=== PATIENT | male | born 1945 | race Caucasian/White ===

== ENCOUNTER → 2020-03-25 | Day surgery (SDC) | payer MEDICARE, OTHER ==
[2020-03-21 14:25] LABS: BASOPHILS # (AUTO) 0.1 (0.0-0.1); EOSINOPHILS # (AUTO) 0.4 (0.0-0.4); EOSINOPHILS % 3.9 % (0.0-6.0); HEMATOCRIT 50.9 % (38.2-49.6); HEMOGLOBIN 16.5 g/dL (14.0-18.0); LYMPHOCYTES # (AUTO) 2.1 (1.0-3.2); LYMPHOCYTES % 21.5 % (18.0-39.1); MEAN CORPUSCULAR HEMOGLOBIN 28.6 pg (28-32); MEAN CORPUSCULAR HGB CONC 32.4 g/dL (31-35); MEAN CORPUSCULAR VOLUME 88.4 fL (81-99); MONOCYTES # (AUTO) 0.7 (0.2-0.8); MONOCYTES % 6.7 % (4.4-11.3); NEUTROPHILS # (AUTO) 6.5 (2.1-6.9); NEUTROPHILS % 66.6 % (38.7-80.0); PLATELET COUNT 191 x10e3/uL (140-360); RED BLOOD COUNT 5.76 x10e6/uL (4.3-5.7); RED CELL DISTRIBUTION WIDTH 14.5 % (11.7-14.4)
[2020-03-21 14:47] LABS: ALANINE AMINOTRANSFERASE 31 IU/L (0-55); ALBUMIN 3.6 g/dL (3.5-5.0); ALBUMIN/GLOBULIN RATIO 1.2 (0.8-2.0); ALKALINE PHOSPHATASE 56 IU/L (40-150); ANION GAP 10.4 mmol/L (8-16); BLOOD UREA NITROGEN 13 mg/dL (7-26); BUN/CREATININE RATIO 12 (6-25); CALCIUM 9.5 mg/dL (8.4-10.2); CARBON DIOXIDE 31 mmol/L (22-29); CHLORIDE 105 mmol/L (98-107); EST GLOMERULAR FILTRATION RATE > 60 ML/MIN (60-); GLUCOSE 156 mg/dL (74-118); POTASSIUM 4.4 mmol/L (3.5-5.1); SODIUM 142 mmol/L (136-145)
[~2020-03-25] VITALS: Ht 181.6 cm; Wt 93.0 kg
[2020-03-25] VITALS (10 sets, daily range): BP systolic 124–183; BP diastolic 70–87
[~2020-03-25] MED LIST: ALPRAZOLAM 0.5 MG TAB ONE; ASPIR 8181 MG PO; ASPIRIN 325 MG TAB ONE; ATORVASTATIN CA20 MG PO; CHROMIUM PICO200 MC1 PO; DIPHENHYDRAMINE HCL 25 MG CAP ONE; FENTANYL CITRATE/PF 100MCG/2 ML INJ ONE; HEPARIN SOD (PORCINE) 1000 UNIT/ML 30ML ONE; HEPARIN SOD/SOD CHLORIDE 2,000 ML ONE; IOPAMIDOL 300MG/ML 100 ML INFUS..BTL IV ONE; LIDOCAINE HCL 2% LOCAL 20 ML VIAL ONE; MIDAZOLAM HCL 2 MG/2 ML VIAL ONE; MULTI-VITAMIN1 EACH PO; PRASUGREL 10 MG TAB ONE; SODIUM CHLORIDE 0.9% 1000ML 1,000 ML ONE; SODIUM CHLORIDE 0.9% 50ML 50 ML ONE; VITAMIN D325 MCG PO
--- OUTSIDE RECORDS SUMMARY | 2020-03-25 11:26 | XMS REPORT | Continuity of Care Document ---
Author Author J[employer] [place] [employer] Organization [employer] Address Unknown Phone Unavailable Care Team Providers Care Restaurant Crew Name Role Phone [employer] Information [employer] Unavailable Un available Problems Problem Status Onset Date Classification Date Reported Comments Source PREOP DBS SURGERY Active 04/14/2017 [facility] ESSENTIAL TREMORS Active 04/06/2017 [facility] TREMOR Active 03/18/2017 [facility] Essential tremor (disorder) Ac tive Problem [facility] Hyperlipidemia (disorder) Acti ve Problem [facility]ly [facility] Obstructive sleep apnea syndrome (disorder) Active Problem 05/13/2018 [facility] ESSENTIAL TREMOR Active [facility] Medications Medication Details Route Status Patient Instructions Ordering Provider Order Date Source olopatadine BOTH EYES, 0 Refil l(s) Active 05/10/2018 [facility] montelukast 10 mg oral tablet 10 mg = 1 tab, PO, Bedtime, # 30 tab, 0 Refill(s) Active 05/10/2018 [facility] clindamycin 300 mg oral capsule 300 mg = 1 cap, PO, Q6H, X 10 day, # 40 cap, 0 Refill(s) Active 05/03/2017 [facility] Docusate Sodium 100 MG Oral Capsule 100 mg = 1 cap, PO, BID, # 60 cap, 0 Refill(s) Active 05/03/2017 [facility] Acetaminophen 300 MG / Codeine Phosphate 30 MG Oral Tablet [Tylenol with Codeine #3] 1 - 2 tab, PO, Q6H, PRN Pain, X 4 day, # 32 tab, 0 Refill(s) Active 05/03/2017 [facility] Cephalexin 500 MG Oral Capsule [Keflex] 500 mg = 1 cap, PO, TID, X 10 day, # 30 cap, 0 Refill(s) Inactive 05/03/2017 [facility] niCARdipine (ANES) Route: IV, Drug form: INJ, ONCE, Stop date: 05/03/17 15:07:00 CDT Inactive 05/03/2017 [facility] esmolol (ANES) Route: IV, Drug form: INJ, ONCE, Stop date: 05/03/17 15:07:00 CDT Inactive 05/03/2017 [facility] ondansetron (ANES) Route: IV, Drug form: INJ, ONCE, Stop date: 05/03/17 15:07:00 CDT Inactive 05/03/2017 [facility] glycopyrrolate (ANES) Route: I V, Drug form: INJ, ONCE, Stop date: 05/03/17 14:52:00 CDT Inactive 05/03/2017 [facility] fentaNYL (ANES) Route: IV, Brayan g form: INJ, ONCE, Stop date: 05/03/17 14:17:00 CDT Inactive 05/03/2017 [facility] lidocaine (ANES) Route: IV, Dr ug form: INJ, ONCE, Stop date: 05/03/17 14:17:00 CDT Inactive 05/03/2017 [facility] propofol (ANES) Route: IV, Brayan g form: INJ, ONCE, Stop date: 05/03/17 14:17:00 CDT Inactive 05/03/2017 [facility] Ondansetron Notes: (Same as: Herbert he) MEDICATION WASTE Product Size: 4 mg Product Wasted: ___ mg No Longer Active 05/03/2017 [facility] Oxycodone Notes: (Same as: Joy icodone) No Longer Active 05/03/2017 [facility] Naloxone Notes: Same as Narcan No Longer Active 05/03/2017 [facility] Flumazenil Notes: (Same as: Ro mazicon) No Longer Active 05/03/2017 [facility] Labetalol 10 mg, 2 mL, Route: IVP, Drug form: INJ, Q5Min, Dosing Weight 88.636, kg, PRN Elevated BP, Start date: 05/03/17 14:02:00 CDT, Duration: 5 doses or times, Stop date: Limited # of times No Longer Active 05/03/2017 [facility] vancomycin (ANES) (ANES) Route : IV, Drug form: INJ, Start date: 05/03/17 13:50:00 CDT, Stop date: 05/03/17 14:50:00 CDT Inactive 05/03/2017 [facility] LR 1000 mL INJ (ANES) Route: I V, Total Volume: 1,000, Start date: 05/03/17 13:39:00 CDT, Stop date: 05/03/17 14:39:00 CDT Inactive 05/03/2017 [facility] Primidone PO, TID, 0 Refill(s) Active 05/03/2017 [facility] Aspirin 0 Refill(s) Inactive 05/03/2017 [facility] Testosterone 0 Refill(s) Active 05/03/2017 [facility] vancomycin + sodium chloride 0.9% 250 mL INJ (for IV set) 250 mL 2001 mg: infuse over 2.5 hours ME DICATION WASTE Product Size: 1000 mg Product Wasted: ___ mg No Longer Active 05/03/2017 [facility] Saline Flush 0.9% Notes: Same as: BD Posiflush Sterile No Longer Active 04/23/2017 [facility] Vancomycin 2001 mg: infuse ov er 2.5 hours MEDICATION WASTE Product Size: 1000 mg Product Wasted: ___ mg No Longer Active 04/23/2017 [facility] Docusate Notes: (Same as: Cola ce) (Do Not Crush) No Longer Active 04/23/2017 [facility] sennosides, SNF Notes: (Same a s: Senokot) No Longer Active 04/23/2017 [facility] atorvastatin Notes: (Same As: Lipitor) No Longer Active 04/23/2017 [facility] Docusate Sodium 100 MG Oral Capsule 100 mg = 1 cap, PO, BID, # 60 cap, 0 Refill(s) Active 04/22/2017 [facility] Ciprofloxacin 500 MG Oral Tablet [Cipro] 500 mg = 1 tab, PO, Q12H, X 10 day, # 20 tab, 0 Refill(s) Active 04/22/2017 [facility] tramadol hydrochloride 50 MG Oral Tablet 50 mg = 1 tab, PO, Q4H, PRN Pain, X 10 day, # 60 tab, 0 Refill(s) Active 04/22/2017 [facility] Labetalol 10 mg, 2 mL, Route: IVP, Drug form: INJ, Q15Min, Dosing Weight 88.636, kg, PRN Hypertension, Start date: 04/22/17 17:31:00 CDT, Duration: 3 doses or times, Stop date: 04/23/17 18:00:00 CDT No Longer Active 04/22/2017 [facility] Hydralazine Notes: (Same as: A presoline) Push over 5 minutes No Longer Active 04/22/2017 [facility] Labetalol 10 mg, 2 mL, Route: IVP, Drug form: INJ, ONCE, Dosing Weight 88.636, kg, Start date: 04/22/17 15:23:00 CDT, Stop date: 04/22/17 15:23:00 CDT Inactive 04/22/2017 [facility] Hydromorphone 0.5 mg, Route: 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, Q5Min, Dosing Weight 88.636, kg, PRN Pain Score 7-10, Start date: 04/22/17 12:15:00 CDT, Duration: 4 doses or times, Stop date: Limited # of times Inactive 04/22/2017 [facility] Flumazenil 0.2 mg, Route: IVP, PRN, Dosing Weight 88.636, kg, PRN Benzodiazepine Reversal, Initial dose, Start date: 04/22/17 12:15:00 CDT, Duration: 30 day, Stop date: 05/22/17 12:14:00 CDT Inactive 04/22/2017 [facility] Labetalol 10 mg, Route: IVP, Q 5Min, Dosing Weight 88.636, kg, PRN Elevated BP, Start date: 04/22/17 12:15:00 CDT, Duration: 5 doses or times, Stop date: Limited # of times Inactive 04/22/2017 [facility] Oxycodone 5 mg, Route: PO, Brayan g form: TAB, Q4H, Dosing Weight 88.636, kg, PRN Pain Score 4-6, Start date: 04/22/17 12:15:00 CDT, Duration: 30 day, Stop date: 05/22/17 12:14:00 CDT Inactive 04/22/2017 [facility] Hydralazine 10 mg, Route: IVP, Q20Min, Dosing Weight 88.636, kg, PRN Elevated BP, Start date: 04/22/17 12:15:00 CDT, Duration: 2 doses or times, Stop date: Limited # of times Inactive 04/22/2017 [facility] Ondansetron 4 mg, Route: IVP, ONCE, Dosing Weight 88.636, kg, PRN Nausea & Vomiting, Start date: 04/22/17 12:15:00 CDT Inactive 04/22/2017 [facility] Naloxone 0.4 mg, Route: IVP, Q 2MIN, Dosing Weight 88.636, kg, PRN Narcotic Reversal, Start date: 04/22/17 12:15:00 CDT, Duration: 8 doses or times, Stop date: Limited # of times Inactive 04/22/2017 [facility] Saline Flush 0.9% Notes: Same as: BD Posiflush Sterile No Longer Active 04/22/2017 [facility] Acetaminophen 325 MG / Hydrocodone Priti trate 5 MG Oral Tablet Notes: (Same as: [place] 325/5) Do not ex ceed 4gm/day of acetaminophen. No Longer Active 04/22/2017 [facility] Morphine Notes: (Same as:MORPh ine Sulfate) No Longer Active 04/22/2017 [facility] Sodium Chloride 0.154 MEQ/ML Injectable Solution 1,000 mL, Rate: 50 ml/hr, Infuse over: 20 hr, Route: IV, Dosing Weight 88.636 kg, Total Volume: 1,000, Start date: 04/22/17 11:58:00 CDT, Duration: 30 day, Stop date: 05/22/17 11:57:00 CDT No Longer Active 04/22/2017 [facility] Ondansetron Notes: (Same as: Herbert he) MEDICATION WASTE Product Size: 4 mg Product Wasted: ___ mg No Longer Active 04/22/2017 [facility] ondansetron (ANES) Route: IV, Drug form: INJ, ONCE, Stop date: 04/22/17 11:55:00 CDT Inactive 04/22/2017 [facility] levETIRAcetam (ANES) (ANES) Ro port gamble: IV, Drug form: INJ, Start date: 04/22/17 11:18:00 CDT, Stop date: 04/22/17 12:18:00 CDT Inactive 04/22/2017 [facility] remifentanil (ANES) Route: IV, Drug form: INJ, ONCE, Stop date: 04/22/17 9:50:00 CDT Inactive 04/22/2017 [facility] propofol (ANES) (ANES) Route: IV, Drug form: INJ, Start date: 04/22/17 9:43:00 CDT, Stop date: 04/22/17 10:43:00 CDT Inactive 04/22/2017 [facility] propofol (ANES) Route: IV, Brayan g form: INJ, ONCE, Stop date: 04/22/17 9:16:00 CDT Inactive 04/22/2017 [facility] remifentanil (ANES) (ANES) Rou te: IV, Drug form: INJ, Start date: 04/22/17 9:14:00 CDT, Stop date: 04/22/17 10:14:00 CDT Inactive 04/22/2017 [facility] propofol (ANES) Route: IV, Brayan g form: INJ, ONCE, Stop date: 04/22/17 8:29:00 CDT Inactive 04/22/2017 [facility] alfentanil (ANES) Route: IV, D rug form: INJ, ONCE, Stop date: 04/22/17 8:29:00 CDT Inactive 04/22/2017 [facility] vancomycin (ANES) (ANES) Route : IV, Drug form: INJ, Start date: 04/22/17 7:51:00 CDT, Stop date: 04/22/17 8:51:00 CDT Inactive 04/22/2017 [facility] acetaminophen (ANES) (ANES) Ro port gamble: IV, Drug form: INJ, Start date: 04/22/17 7:43:00 CDT, Stop date: 04/22/17 8:43:00 CDT Inactive 04/22/2017 [facility] LR 1000 mL INJ (ANES) Route: I V, Total Volume: 1,000, Start date: 04/22/17 7:35:00 CDT, Stop date: 04/22/17 8:35:00 CDT Inactive 04/22/2017 [facility] vancomycin + sodium chloride 0.9% INJ 250 mL 2001 mg: infuse over 2.5 hours MEDICATION WASTE Product Size: 1000 mg Product Wasted: ___ mg Inactive 04/22/2017 [facility] Allergies, Adverse Reactions, Alerts Substance Category Reaction Severity Reaction type Status Date Reported Comments Source penicillins Assertion Drug allergy Active [facility] Immunizations No Data Provided for This Section Results Order Name Results Value Reference Range Date Interpretation Comments Source BLOOD BANK RESULTS ABO/Rh A POS 04/22/2017 [facility] BLOOD BANK RESULTS Antibody Scrn Negative (04/22/17 6:08 AM) 04/22/2017 [facility] CHEM PANEL eGFR 89 04/14/2017 Result Comment: The eGFR is calculated using the CKD-EPI formula. In most young, healthy individuals the eGFR will be >90 mL/min/1.73m2. The eGFR declines with age. An eGFR of 60-89 may be normal in some populations, particularly the elderly, for whom the CKD-EPI formula has not been extensively validated. Use of the eGFR is not recommended in the following populations:

Individuals with unstable creatinine concentrations, including patients and those with serious co-morbid conditions.

Patients with extremes in muscle mass or diet.

The data above are obtained from the National Kidney Disease Education Program (NKDEP) which additionally recommends that when the eGFR is used in patients with extremes of body mass index for purposes of drug dosing, the eGFR should be multiplied by the estimated BMI. [facility] CHEM PANEL POC Creatinine 0.8 0.5 - 1.4 04/14/2017 [facility] ELECTROLYTES AGAP 9.7 10.0 - 20.0 04/07/2017 [facility] ELECTROLYTES eGFR 71 04/07/2017 Result Comment: The eGFR is calculated using the CKD-EPI formula. In most young, healthy individuals the eGFR will be >90 mL/min/1.73m2. The eGFR declines with age. An eGFR of 60-89 may be normal in some populations, particularly the elderly, for whom the CKD-EPI formula has not been extensively validated. Use of the eGFR is not recommended in the following populations:

Individuals with unstable creatinine concentrations, including patients and those with serious co-morbid conditions.

Patients with extremes in muscle mass or diet.

The data above are obtained from the National Kidney Disease Education Program (NKDEP) which additionally recommends that when the eGFR is used in patients with extremes of body mass index for purposes of drug dosing, the eGFR should be multiplied by the estimated BMI. [facility] ELECTROLYTES CO2 36 24 - 32 04/07/2017 [facility] ELECTROLYTES Calcium Lvl 9.7 8.5 - 10.5 04/07/2017 [facility] ELECTROLYTES Potassium Lvl 4.7 3.5 - 5.1 04/07/2017 [facility] ELECTROLYTES Glucose Lvl 70 70 - 99 04/07/2017 [facility] ELECTROLYTES Chloride Lvl 104 95 - 109 04/07/2017 [facility] ELECTROLYTES BUN 17 7 - 22 04/07/2017 [facility] ELECTROLYTES Creatinine Lvl 1.0 4 0.50 - 1.40 04/07/2017 [facility] ELECTROLYTES Sodium Lvl 145 135 - 145 04/07/2017 [facility] HEMATOLOGY Basophils # 0.1 0.0 - 0.2 04/07/2017 [facility] HEMATOLOGY Monocytes # 0.7 0.0 - 0.8 04/07/2017 [facility] HEMATOLOGY Eosinophils # 0.3 0.0 - 0.5 04/07/2017 [facility] HEMATOLOGY Lymphocytes # 2.2 1.0 - 5.5 04/07/2017 [facility] HEMATOLOGY Lymphocytes 19.8 20.0 - 40.0 04/07/2017 [facility] HEMATOLOGY Segs 70.5 45.0 - 75.0 04/07/2017 [facility] HEMATOLOGY Basophils 0.9 0.0 - 1.0 04/07/2017 [facility] HEMATOLOGY Segs-Bands # 7.7 1.5 - 8.1 04/07/2017 [facility] HEMATOLOGY Eosinophils 2.4 0.0 - 4.0 04/07/2017 [facility] HEMATOLOGY Monocytes 6.4 2.0 - 12.0 04/07/2017 [facility] HEMATOLOGY RDW 14.5 11.5 - 14.5 04/07/2017 [facility] HEMATOLOGY MCHC 32.8 32.0 - 36.0 04/07/2017 [facility] HEMATOLOGY Platelet 176 133 - 450 04/07/2017 [facility] HEMATOLOGY MPV 8.8 7.4 - 10.4 04/07/2017 [facility] HEMATOLOGY RBC 5.84 4.70 - 6.10 04/07/2017 [facility] HEMATOLOGY MCH 29.4 27.0 - 31.0 04/07/2017 [facility] HEMATOLOGY MCV 89.9 80.0 - 94.0 04/07/2017 [facility] HEMATOLOGY WBC 11.0 3.7 - 10.4 04/07/2017 [facility] HEMATOLOGY Hct 52.5 42.0 - 54.0 04/07/2017 [facility] HEMATOLOGY Hgb 17.2 14.0 - 18.0 04/07/2017 [facility] HEMATOLOGY INR 1.08 0.85 - 1.17 04/07/2017 [facility] HEMATOLOGY PT 14.2 12.0 - 14.7 04/07/2017 [facility] HEMATOLOGY PTT 43.5 22.9 - 35.8 04/07/2017 [facility] URINE AND STOOL Micro? Not Indicated *NA* (04/07/17 2:00 PM) 04/07/2017 [facility] URINE AND STOOL UA Urobilinogen <=1.0 mg/dL 0.1 - 1.0 04/07/2017 [facility] URINE AND STOOL UA Bili Negative *NA* (04/07/17 2:00 PM) Negative 04/07/2017 [facility] URINE AND STOOL UA Protein Negative mg/dL Negative mg/dL 04/07/2017 [facility] URINE AND STOOL UA pH 5.0 5.0 - 8.0 04/07/2017 [facility] URINE AND STOOL UA Ketones Negative mg/dL Negative mg/dL 04/07/2017 [facility] URINE AND STOOL UA Glucose Negative mg/dL Negative mg/dL 04/07/2017 [facility] URINE AND STOOL UA Spec Grav 1.008 <=1.030 04/07/2017 [facility] URINE AND STOOL UA Color Yellow *NA* (04/07/17 2:00 PM) Yellow 04/07/2017 [facility] URINE AND STOOL UA Turbidity Clear (04/07/17 2:00 PM) Clear 04/07/2017 [facility] URINE AND STOOL UA Blood Negative (04/07/17 2:00 PM) Negative 04/07/2017 [facility] URINE AND STOOL UA Nitrite Negative (04/07/17 2:00 PM) Negative 04/07/2017 [facility] URINE AND STOOL UA RBC <1 0 - 2 04/07/2017 [facility] URINE AND STOOL UA Leuk Est Negative (04/07/17 2:00 PM) Negative 04/07/2017 [facility] URINE AND STOOL UA WBC 1 0 - 5 04/07/2017 [facility] Pathology Reports No Data Provided for This Section Diagnostic Reports Report Value Date Source Brain wo contrast CT EXAM: CT BRAIN WITHOUT CONTRAST FOR TREATMENT PLANNING DATE: 04/22/2017 8:00 AM CDT INDICATION: - TREMOR COMPARISON: MRI of the brain from April 14, 2017 TECHNIQUE: Routine axial CT images of the brain were obtained IV contrast: None. FINDINGS: Non-contrast images of the head demonstrate no edema, hemorrhage, mass lesion or other acute intracranial abnormality. The brain has normal attenuation and busby-white matter distinction. The ventricles are normal. The basal cisterns and sulci are normal in size. The paranasal sinuses, orbits and mastoids are unremarkable. IMPRESSION: Adequate Study for treatment planning 04/22/2017 [facility] Brain w/wo contrast MRI EXAM: MRI BRAIN WITH AND WITHOUT CONTRAST DATE: 04/14/2017 3:00 PM CDT INDICATION: Tremor - Tremor Preplanning for placement of a deep brain stimulator COMPARISON: None available TECHNIQUE: Multiplanar, multisequence non-contrast MRI images of the brain. Multiplanar imaging is subsequently obtained following intravenous gadolinium contrast. IV contrast: 16 cc of MultiHance FINDINGS: Diffusion-weighted images and correlative maps of apparent diffusion coefficient demonstrate no acute ischemic change. Punctate T2 and FLAIR hyperintensities are seen in the periventricular deep white matter consistent with chronic microvascular ischemic changes. Routine non-contrast imaging demonstrates no mass lesion, signal change, or structural abnormality. The ventricles and the sulci are diffusely prominent consistent with age-related volume loss.. There is no acute or chronic hemorrhagic change. The intracranial arterial and venous structures are normal in appearance. The visible paranasal sinuses and skull base are unremarkable. Post-contrast images reveal no abnormal parenchymal or leptomeningeal enhancement. The vascular structures enhance uneventfully. IMPRESSION: 1. Chronic microvascular ischemic alba es as well as diffuse volume loss 2. Images are adequate for localization. 04/14/2017 [facility] Consultation Notes No Data Provided for This Section Discharge Summaries No Data Provided for This Section History and Physicals No Data Provided for This Section Vital Signs Vital Sign Value Date Comments Source Heart Rate 81 05/09/2018 [facility] Height 180.34 cm 05/09/2018 [facility] BMI Calculated 28.39 05/09/2018 [facility] Systolic (mm Hg) 156 05/09/2018 [facility] Diastolic (mm Hg) 82 05/09/2018 [facility] Weight 92.33 05/09/2018 [facility] Systolic (mm Hg) 170 05/03/2017 [facility] Diastolic (mm Hg) 85 05/03/2017 [facility] Respitory Rate 17 05/03/2017 [facility] Systolic (mm Hg) 159 05/03/2017 [facility] Diastolic (mm Hg) 83 05/03/2017 [facility] Respitory Rate 28 05/03/2017 [facility] Respitory Rate 22 05/03/2017 [facility] Systolic (mm Hg) 163 05/03/2017 [facility] Diastolic (mm Hg) 78 05/03/2017 [facility] Heart Rate 65 05/03/2017 [facility] Height 180.34 cm 05/03/2017 [facility] Weight 88.636 05/03/2017 [facility] BMI Calculated 27.25 05/03/2017 [facility] Respitory Rate 14 04/23/2017 [facility] Systolic (mm Hg) 143 04/23/2017 [facility] Diastolic (mm Hg) 67 04/23/2017 [facility] Systolic (mm Hg) 140 04/23/2017 [facility] Diastolic (mm Hg) 75 04/23/2017 [facility] Respitory Rate 16 04/23/2017 [facility] Respitory Rate 21 04/23/2017 [facility] Systolic (mm Hg) 170 04/23/2017 [facility] Diastolic (mm Hg) 81 04/23/2017 [facility] Temperature Oral (F) 97.7 F 04/22/2017 [facility] Temperature Oral (F) 97.3 F 04/22/2017 [facility] Heart Rate 63 04/22/2017 [facility] BMI Calculated 28.86 04/22/2017 [facility] Weight 88.636 04/22/2017 [facility] Height 175.26 cm 04/22/2017 [facility] Respitory Rate 21 04/15/2017 [facility] Systolic (mm Hg) 148 04/15/2017 [facility] Diastolic (mm Hg) 69 04/15/2017 [facility] Systolic (mm Hg) 169 04/15/2017 [facility] Diastolic (mm Hg) 82 04/15/2017 [facility] Respitory Rate 12 04/15/2017 [facility] Systolic (mm Hg) 176 04/15/2017 [facility] Diastolic (mm Hg) 89 04/15/2017 [facility] Respitory Rate 11 04/15/2017 [facility] Weight 88 0 04/14/2017 [facility] Height 167.64 cm 04/14/2017 [facility] BMI Calculated 31.31 04/14/2017 [facility] Heart Rate 60 04/14/2017 [facility] Encounters Location Location Details Encounter Type Encounter Number Reason For Visit Attending Provider ADM Date DC Date Status Source Outpatient [id number] ALBERT YU JR 02/02/2017 Active [facility] Day Surgery [id number] Albert Yu Jr 04/14/2017 04/14/2017 [facility] Day Surgery [id number] Albert Yu Jr 04/14/2017 04/15/2017 [facility] Outpatient [id number] ALBERT YU JR 04/19/2017 Active [facility] Outpatient [id number] ALBERT YU JR 04/22/2017 [facility] Inpatient [id number] Albert Yu Jr 04/22/2017 04/23/2017 [facility] Outpatient [id number] ALBERT YU JR 05/03/2017 Active [facility] Day Surgery [id number] Albert Yu Jr 05/03/2017 05/04/2017 [facility] Outpatient [id number] ALBERT YU 05/18/2017 Active [facility] Outpatient [id number] ALBERT YU 08/17/2017 Active [facility] Outpatient [id number] ALBERT YU 05/10/2018 Active [facility] [id number] Delano Pickering 05/10/2018 05/11/2018 [facility] Neuro Procedures Procedure Code Date Perfomer Comments Source Teeth operation<sup>1</sup> 23 [id number] wisdom bentley th removed [facility] Assessment and Plan No Data Provided for This Section Plan of Care No Data Provided for This Section Social History Social History Date Source Social History TypeResponse Alcohol Current, Type Beer. Frequency: 1-2 times per week. Smoking Status Current every day smoker; Type: Cigarettes; Exposure to Tobacco Smoke None; Other Tobacco Frequency 8 daily; Cigarette Smoking Last 365 Days Yes; Reg Smoking Cessation Counseling No1 1pt is a current smoker of cigarettes. Smokes ~ 1/4 ppd x ~50yrs. He is interested in quitting smoking 04/07/2017 [facility] Social History TypeResponse Alcohol Current, Type Beer. Frequency: 1-2 times per week. Smoking Status Current every day smoker; Type: Cigarettes; Exposure to Tobacco Smoke None; Cigarette Smoking Last 365 Days Yes; Reg Smoking Cessation Counseling No; Other Tobacco Frequency 8 daily; 1 entered on: 05/09/18 1pt is a current smoker of cigarettes. Smokes ~ 1/4 ppd x ~50yrs. He is interested in quitting smoking 04/07/2017 [facility] Family History No Data Provided for This Section Advance Directives No Data Provided for This Section Functional Status No Data Provided for This Section
--- OUTSIDE RECORDS SUMMARY | 2020-03-25 11:26 | XMS REPORT | Summary of Care ---
Author Author [facility] Organization [facility] Address Unknown Phone Unavailable Encounter JOSE Rosenberg(KATYA) [id number] Date(s): 04/22/17 - 04/23/17 [facility] [address] [employer] provided by [facility] [employer] [facility] [place] [address]- Discharge Disposition: Home or Self Care Attending Physician: Albert Clark MD Admitting Physician: Albert Clark MD Referring Physician: Albert Clark MD Vital Signs 1 2 3 Most recent to oldest [Reference Range]: 175.26 cm (04/22/17 5:52 AM) Height 97.7 DegF (04/22/17 4:00 PM) 97.3 DegF (04/22/17 1:00 PM) Temperature Oral [96.4-99.1 DegF] 143/67 mmHg *HI* (04/23/17 7:00 AM) 140/75 mmHg (04/23/17 6:00 AM) 170/81 mmHg *HI* (04/23/17 5:00 AM) Blood Pressure [90-140/60-90 mmHg] 14 BRMIN (04/23/17 7:00 AM) 16 BRMIN (04/23/17 6:00 AM) 21 BRMIN *HI* (04/23/17 5:00 AM) Respiratory Rate [14-20 BRMIN] 63 bpm (04/22/17 5:59 AM) Peripheral Pulse Rate [60-100 bpm] 88.636 kg (04/22/17 5:52 AM) Weight 28.86 m2 (04/22/17 5:52 AM) Body Mass Index Problem List Condition Effective Dates Status Health Status Informan t Essential Active tremor(Confirmed) HLD Active (hyperlipidemia)(Con firmed) LOUISE (obstructive Active sleep apnea)(Confirmed) Allergies, Adverse Reactions, Alerts Substance Reaction Severity Status penicillins Active Medications acetaminophen (ANES) (ANES) Route: IV, Drug form: INJ, Start date: 04/22/17 7:43:00 CDT, Stop date: 04/22/17 8:43:00 CDT Start Date: 04/22/17 Stop Date: 04/22/17 Status: Completed acetaminophen-hydrocodone 325 mg-5 mg oral tablet 2 tab, Route: PO, Drug Form: TAB, Dosing Weight 88.636, kg, Q4H, PRN Pain Score 4-6, Start date: 04/22/17 11:58:00 CDT, Duration: 30 day, Stop date: 05/22/17 11 :57:00 CDT Notes: (Same as: [place] 325/5) Do not exceed 4gm/day of acetaminophen. Start Date: 04/22/17 Stop Date: 04/23/17 Status: Discontinued acetaminophen-hydrocodone 325 mg-5 mg oral tablet 1 tab, Route: PO, Drug Form: TAB, Dosing Weight 88.636, kg, Q4H, PRN Pain Score 1-3, Start date: 04/22/17 11:58:00 CDT, Duration: 30 day, Stop date: 05/22/17 11 :57:00 CDT Notes: (Same as: [place] 325/5) Do not exceed 4gm/day of acetaminophen. Start Date: 04/22/17 Stop Date: 04/23/17 Status: Discontinued alfentanil (ANES) Route: IV, Drug form: INJ, ONCE, Stop date: 04/22/17 8:29:00 CDT Start Date: 04/22/17 Stop Date: 04/22/17 Status: Completed ANES flumazenil 0.2 mg, Route: IVP, PRN, Dosing Weight 88.636, kg, PRN Benzodiazepine Reversal, Initial dose, Start date: 04/22/17 12:15:00 CDT, Duration: 30 day, Stop date: 12:14:00 CDT Start Date: 04/22/17 Stop Date: 04/22/17 Status: Discontinued ANES hydrALAZINE 10 mg, Route: IVP, Q20Min, Dosing Weight 88.636, kg, PRN Elevated BP, Start date : 04/22/17 12:15:00 CDT, Duration: 2 doses or times, Stop date: Limited # of genoveva es Start Date: 04/22/17 Stop Date: 04/22/17 Status: Discontinued ANES HYDROmorphone 0.5 mg, Route: IVP, Q5Min, Dosing Weight 88.636, kg, PRN Pain Score 7-10, Start date: 04/22/17 12:15:00 CDT, Duration: 4 doses or times, Stop date: Limited # of times Start Date: 04/22/17 Stop Date: 04/22/17 Status: Discontinued ANES labetalol 10 mg, Route: IVP, Q5Min, Dosing Weight 88.636, kg, PRN Elevated BP, Start date: 04/22/17 12:15:00 CDT, Duration: 5 doses or times, Stop date: Limited # of times Start Date: 04/22/17 Stop Date: 04/22/17 Status: Discontinued ANES naloxone 0.4 mg, Route: IVP, Q2MIN, Dosing Weight 88.636, kg, PRN Narcotic Reversal, Star t date: 04/22/17 12:15:00 CDT, Duration: 8 doses or times, Stop date: Limited # of times Start Date: 04/22/17 Stop Date: 04/22/17 Status: Discontinued ANES ondansetron 4 mg, Route: IVP, ONCE, Dosing Weight 88.636, kg, PRN Nausea & Vomiting, Start date: 04/22/17 12:15:00 CDT Start Date: 04/22/17 Stop Date: 04/22/17 Status: Discontinued ANES oxyCODONE 5 mg, Route: PO, Drug form: TAB, Q4H, Dosing Weight 88.636, kg, PRN Pain Score 4 -6, Start date: 04/22/17 12:15:00 CDT, Duration: 30 day, Stop date: 05/22/17 12: 14:00 CDT Start Date: 04/22/17 Stop Date: 04/22/17 Status: Discontinued atorvastatin 20 mg, 1 tab, Route: PO, Drug form: TAB, Bedtime, Dosing Weight 88.636, kg, Star t date: 04/22/17 21:00:00 CDT, Duration: 30 day, Stop date: 05/21/17 21:00:00 CD T Notes: (Same As: Lipitor) Start Date: 04/22/17 Stop Date: 04/23/17 Status: Discontinued Cipro 500 mg oral tablet 500 mg = 1 tab, PO, Q12H, X 10 day, # 20 tab, 0 Refill(s) Start Date: 04/22/17 Stop Date: 05/02/17 Status: Ordered docusate 100 mg, 1 cap, Route: PO, Drug form: CAP, Q12H, Dosing Weight 88.636, kg, Start date: 04/22/17 21:00:00 CDT, Duration: 30 day, Stop date: 05/22/17 9:00:00 CDT Notes: (Same as: Colace) (Do Not Crush) Start Date: 04/22/17 Stop Date: 04/23/17 Status: Discontinued docusate sodium 100 mg oral capsule 100 mg = 1 cap, PO, BID, # 60 cap, 0 Refill(s) Start Date: 04/22/17 Status: Ordered hydrALAZINE 10 mg, 0.5 mL, Route: IV, Drug form: INJ, Q6H, Dosing Weight 88.636, kg, PRN Hyp ertension, Start date: 04/22/17 17:31:00 CDT, Duration: 30 day, Stop date: 05/22 17:30:00 CDT Notes: (Same as: Apresoline)Push over 5 minutes Start Date: 04/22/17 Stop Date: 04/23/17 Status: Discontinued labetalol 10 mg, 2 mL, Route: IVP, Drug form: INJ, ONCE, Dosing Weight 88.636, kg, Start d ate: 04/22/17 15:23:00 CDT, Stop date: 04/22/17 15:23:00 CDT Start Date: 04/22/17 Stop Date: 04/22/17 Status: Completed labetalol 10 mg, 2 mL, Route: IVP, Drug form: INJ, Q15Min, Dosing Weight 88.636, kg, PRN H ypertension, Start date: 04/22/17 17:31:00 CDT, Duration: 3 doses or times, Stop date: 04/23/17 18:00:00 CDT Start Date: 04/22/17 Stop Date: 04/23/17 Status: Discontinued levETIRAcetam (ANES) (ANES) Route: IV, Drug form: INJ, Start date: 04/22/17 11:18:00 CDT, Stop date: 7 12:18:00 CDT Start Date: 04/22/17 Stop Date: 04/22/17 Status: Completed LR 1000 mL INJ (ANES) Route: IV, Total Volume: 1,000, Start date: 04/22/17 7:35:00 CDT, Stop date: 07/31 8:35:00 CDT Start Date: 04/22/17 Stop Date: 04/22/17 Status: Completed morphine Sulfate 2 mg, 1 mL, Route: IVP, Drug form: INJ, Q2H, Dosing Weight 88.636, kg, PRN Pain Score 7-10, Start date: 04/22/17 11:58:00 CDT, Duration: 30 day, Stop date: 07/31 11:57:00 CDT Notes: (Same as:MORPhine Sulfate) Start Date: 04/22/17 Stop Date: 04/23/17 Status: Discontinued ondansetron 4 mg, 2 mL, Route: IVP, Drug form: INJ, Q8H, Dosing Weight 88.636, kg, PRN Nause a & Vomiting, Start date: 04/22/17 11:58:00 CDT, Duration: 30 day, Stop date: 05/22/17 11:57:00 CDT Notes: (Same as: Rachel) MEDICATION WASTE Product Size: 4 mgProduct Was chela: ___ mg Start Date: 04/22/17 Stop Date: 04/23/17 Status: Discontinued ondansetron (ANES) Route: IV, Drug form: INJ, ONCE, Stop date: 04/22/17 11:55:00 CDT Start Date: 04/22/17 Stop Date: 04/22/17 Status: Completed propofol (ANES) Route: IV, Drug form: INJ, ONCE, Stop date: 04/22/17 8:29:00 CDT Start Date: 04/22/17 Stop Date: 04/22/17 Status: Completed propofol (ANES) Route: IV, Drug form: INJ, ONCE, Stop date: 04/22/17 9:16:00 CDT Start Date: 04/22/17 Stop Date: 04/22/17 Status: Completed propofol (ANES) (ANES) Route: IV, Drug form: INJ, Start date: 04/22/17 9:43:00 CDT, Stop date: 04/22/17 10:43:00 CDT Start Date: 04/22/17 Stop Date: 04/22/17 Status: Completed remifentanil (ANES) Route: IV, Drug form: INJ, ONCE, Stop date: 04/22/17 9:50:00 CDT Start Date: 04/22/17 Stop Date: 04/22/17 Status: Completed remifentanil (ANES) (ANES) Route: IV, Drug form: INJ, Start date: 04/22/17 9:14:00 CDT, Stop date: 04/22/17 10:14:00 CDT Start Date: 04/22/17 Stop Date: 04/22/17 Status: Completed Saline Flush 0.9% 10 ml, Route: IVP, Drug Form: INJ, Dosing Weight 88.636, kg, PRN, PRN Line Flush , Start date: 04/22/17 11:58:00 CDT, Duration: 30 day, Stop date: 05/22/17 11:57 :00 CDT Notes: Same as: BD Posiflush Sterile Start Date: 04/22/17 Stop Date: 04/23/17 Status: Discontinued Saline Flush 0.9% 10 ml, Route: IVP, Drug Form: INJ, Dosing Weight 88.636, kg, Q12H, Start date: 0 04/22/17 21:00:00 CDT, Duration: 30 day, Stop date: 05/22/17 9:00:00 CDT Notes: Same as: BD Posiflush Sterile Start Date: 04/22/17 Stop Date: 04/23/17 Status: Discontinued senna 8.6 mg, 1 tab, Route: PO, Drug Form: TAB, Dosing Weight 88.636, kg, Q12H, Start date: 04/22/17 21:00:00 CDT, Duration: 30 day, Stop date: 05/22/17 9:00:00 CDT Notes: (Same as: Kevin) Start Date: 04/22/17 Stop Date: 04/23/17 Status: Discontinued sodium chloride 0.9% 1000 ml INJ 1,000 mL 1,000 mL, Rate: 50 ml/hr, Infuse over: 20 hr, Route: IV, Dosing Weight 88.636 kg , Total Volume: 1,000, Start date: 04/22/17 11:58:00 CDT, Duration: 30 day, Stop date: 05/22/17 11:57:00 CDT Start Date: 04/22/17 Stop Date: 04/23/17 Status: Discontinued tramadol 50 mg oral tablet 50 mg = 1 tab, PO, Q4H, PRN Pain, X 10 day, # 60 tab, 0 Refill(s) Start Date: 04/22/17 Stop Date: 05/02/17 Status: Ordered vancomycin (ANES) (ANES) Route: IV, Drug form: INJ, Start date: 04/22/17 7:51:00 CDT, Stop date: 04/22/17 8:51:00 CDT Start Date: 04/22/17 Stop Date: 04/22/17 Status: Completed vancomycin (SCIP) 1,000 mg, Route: IVPB, Drug form: INJ, Q12H, Dosing Weight 88.636, kg, TIME CRIT ICAL MEDICATION, Start date: 04/22/17 21:00:00 CDT, Duration: 2 doses or times, Stop date: 04/23/17 9:00:00 CDT, ABX Indication: Surgical Prophylaxis Notes: TIME CRITICAL MEDICATION(Same As: Vancocin)Infusion rate< 1000 mg: infuse over 1 [id number] - 1500 mg: infuse over 1.5 [id number] - 2000 mg: infuse over 2 hours> 2001 mg: infuse over 2.5 hours MEDICATION WASTE Product Size: 1000 mgProduct Wasted: ___ mg Start Date: 04/22/17 Stop Date: 04/23/17 Status: Completed vancomycin + sodium chloride 0.9% INJ 250 mL 1.5 gm, Route: IVPB, PRE OP, Start date: 04/22/17 7:00:00 CDT, Duration: 1 day, Stop date: 04/23/17 6:59:00 CDT, ABX Indication: Surgical Prophylaxis Notes: TIME CRITICAL MEDICATION(Same As: Vancocin)Infusion rate< 1000 mg: infuse over 1 [id number] - 1500 mg: infuse over 1.5 hoursVancomycin FOR IV SET [id number] - 2000 mg: infuse over 2 hours> 2001 mg: infuse over 2.5 hours MEDICATION WASTE Product Size: 1000 mgProduct Wasted: ___ mg Start Date: 04/22/17 Stop Date: 04/22/17 Status: Completed Results BLOOD BANK RESULTS Most recent to 1 oldest [Reference Range]: ABO/Rh A POS *Unknown* (04/22/17 6:08 AM) Antibody Scrn Negative (04/22/17 6:08 AM) ELECTROLYTES Most recent to 1 oldest [Reference Range]: Sodium Lvl [135-145 145 mEq/L mEq/L] (04/07/17 2:00 PM) Potassium Lvl 4.7 mEq/L [3.5-5.1 mEq/L] (04/07/17 2:00 PM) Chloride Lvl [95-109 104 mEq/L mEq/L] (04/07/17 2:00 PM) CO2 [24-32 mEq/L] 36 mEq/L *HI* (04/07/17 2:00 PM) AGAP [10.0-20.0 9.7 mEq/L mEq/L] *LOW* (04/07/17 2:00 PM) CHEM PANEL Most recent to 1 oldest [Reference Range]: Creatinine Lvl 1.04 mg/dL [0.50-1.40 mg/dL] (04/07/17 2:00 PM) eGFR 71 mL/min/1.73m2 1 *NA* (04/07/17 2:00 PM) BUN [7-22 mg/dL] 17 mg/dL (04/07/17 2:00 PM) Glucose Lvl [70-99 70 mg/dL mg/dL] (04/07/17 2:00 PM) Calcium Lvl 9.7 mg/dL [8.5-10.5 mg/dL] (04/07/17 2:00 PM) 1Result Comment: The eGFR is calculated using the [...] from the National Kidney Disease Education Program ( NKDEP) which additionally recommends that when the eGFR is used in patients with extremes of body mass index for purposes of drug dosing, the eGFR should be mul tiplied by the estimated BMI. URINE AND STOOL Most recent to 1 oldest [Reference Range]: UA Turbidity [Clear] Clear (04/07/17 2:00 PM) UA Color [Yellow] Yellow *NA* (04/07/17 2:00 PM) UA pH [5.0-8.0] 5.0 (04/07/17 2:00 PM) UA Spec Grav 1.008 [<=1.030] (04/07/17 2:00 PM) UA Glucose [Negative Negative mg/dL mg/dL] *NA* (04/07/17 2:00 PM) UA Blood [Negative] Negative (04/07/17 2:00 PM) UA Ketones [Negative Negative mg/dL mg/dL] *NA* (04/07/17 2:00 PM) UA Protein [Negative Negative mg/dL mg/dL] (04/07/17 2:00 PM) UA Urobilinogen <=1.0 mg/dL [0.1-1.0 mg/dL] *NA* (04/07/17 2:00 PM) UA Bili [Negative] Negative *NA* (04/07/17 2:00 PM) UA Leuk Est Negative [Negative] (04/07/17 2:00 PM) UA Nitrite Negative [Negative] (04/07/17 2:00 PM) UA WBC [0-5 /HPF] 1 /HPF (04/07/17 2:00 PM) UA RBC [0-2 /HPF] <1 /HPF (04/07/17 2:00 PM) Micro? Not Indicated *NA* (04/07/17 2:00 PM) HEMATOLOGY Most recent to 1 oldest [Reference Range]: WBC [3.7-10.4 K/CMM] 11.0 K/CMM *HI* (04/07/17 2:00 PM) RBC [4.70-6.10 5.84 M/CMM M/CMM] (04/07/17 2:00 PM) Hgb [14.0-18.0 g/dL] 17.2 g/dL (04/07/17 2:00 PM) Hct [42.0-54.0 %] 52.5 % (04/07/17 2:00 PM) MCV [80.0-94.0 fL] 89.9 fL (04/07/17 2:00 PM) MCH [27.0-31.0 pg] 29.4 pg (04/07/17 2:00 PM) MCHC [32.0-36.0 32.8 g/dL g/dL] (04/07/17 2:00 PM) RDW [11.5-14.5 %] 14.5 % (04/07/17 2:00 PM) Platelet [133-450 176 K/CMM K/CMM] (04/07/17 2:00 PM) MPV [7.4-10.4 fL] 8.8 fL (04/07/17 2:00 PM) Segs [45.0-75.0 %] 70.5 % (04/07/17 2:00 PM) Lymphocytes 19.8 % [20.0-40.0 %] *LOW* (04/07/17 2:00 PM) Monocytes [2.0-12.0 6.4 % %] (04/07/17 2:00 PM) Eosinophils [0.0-4.0 2.4 % %] (04/07/17 2:00 PM) Basophils [0.0-1.0 0.9 % %] (04/07/17 2:00 PM) Segs-Bands # 7.7 K/CMM [1.5-8.1 K/CMM] (04/07/17 2:00 PM) Lymphocytes # 2.2 K/CMM [1.0-5.5 K/CMM] (04/07/17 2:00 PM) Monocytes # [0.0-0.8 0.7 K/CMM K/CMM] (04/07/17 2:00 PM) Eosinophils # 0.3 K/CMM [0.0-0.5 K/CMM] (04/07/17 2:00 PM) Basophils # [0.0-0.2 0.1 K/CMM K/CMM] (04/07/17 2:00 PM) PT [12.0-14.7 14.2 seconds seconds] (04/07/17 2:00 PM) INR [0.85-1.17] 1.08 (04/07/17 2:00 PM) PTT [22.9-35.8 43.5 seconds seconds] *HI* (04/07/17 2:00 PM) Immunizations No data available for this section Procedures Procedure Date Related Diagnosis Body Site Teeth operation1 1wisdom teeth removed Social History Social History Type Response Alcohol Current, Type Beer. Freque ncy: 1-2 times per week. Smoking Status Current every day smoker; T ype: Cigarettes; Exposure to Tobacco Smoke None; Other Tobacco Frequency 8 daily; Cigare tte Smoking Last 365 Days Yes; Reg Smoking Cessation Counseling No1 1pt is a current smoker of cigarettes. Smokes ~ 1/4 ppd x ~50yrs. He is interested in quitting smoking Assessment and Plan No data available for this section
--- OUTSIDE RECORDS SUMMARY | 2020-03-25 11:26 | XMS REPORT | Summary of Care ---
Author Author [facility] Organization [facility] Address Unknown Phone Unavailable Encounter JOSE Rosenberg(KATYA) [id number] Date(s): 04/14/17 - 04/14/17 [facility] [address] [place], [place] [address] Attending Physician: Albert Clark MD Referring Physician: Albert Clark MD Vital Signs Most recent to 1 oldest [Reference Range]: Height 167.64 cm (04/14/17 6:31 PM) Weight 88 kg (04/14/17 6:31 PM) Body Mass Index 31.31 m2 (04/14/17 6:31 PM) Problem List Condition Effective Dates Status Health Status Informan t Essential Active tremor(Confirmed) HLD Active (hyperlipidemia)(Con firmed) LOUISE (obstructive Active sleep apnea)(Confirmed) Allergies, Adverse Reactions, Alerts Substance Reaction Severity Status penicillins Active Medications No data available for this section Results No data available for this section Immunizations No data available for this section [...]
--- OUTSIDE RECORDS SUMMARY | 2020-03-25 11:26 | XMS REPORT | Summary of Care ---
Author Author [facility] Organization [facility] Address Unknown Phone Unavailable Encounter JOSE Rosenberg(KATYA) [id number] Date(s): 05/03/17 - 05/03/17 [facility] [address] Discharge Disposition: Home or Self Care Attending Physician: Albert Clark MD Admitting Physician: Albert Clark MD Referring Physician: Albert Clark MD Vital Signs 1 2 3 Most recent to oldest [Reference Range]: 180.34 cm (05/03/17 1:04 PM) Height 170/85 mmHg *HI* (05/03/17 4:45 PM) 159/83 mmHg *HI* (05/03/17 4:15 PM) 163/78 mmHg *HI* (05/03/17 4:00 PM) Blood Pressure [90-140/60-90 mmHg] 17 BRMIN (05/03/17 4:45 PM) 28 BRMIN *HI* (05/03/17 4:15 PM) 22 BRMIN *HI* (05/03/17 4:00 PM) Respiratory Rate [14-20 BRMIN] 65 bpm (05/03/17 1:09 PM) Peripheral Pulse Rate [60-100 bpm] 88.636 kg (05/03/17 1:04 PM) Weight 27.25 m2 (05/03/17 1:04 PM) Body Mass Index Problem List Condition Effective Dates Status Health Status Informan t Essential Active tremor(Confirmed) HLD Active (hyperlipidemia)(Con firmed) LOUISE (obstructive Active sleep apnea)(Confirmed) Allergies, Adverse Reactions, Alerts Substance Reaction Severity Status penicillins Active Medications ANES flumazenil 0.2 mg, 2 mL, Route: IVP, Drug form: INJ, PRN, Dosing Weight 88.636, kg, PRN Lionel zodiazepine Reversal, Initial dose, Start date: 05/03/17 14:02:00 CDT, Duration: 30 day, Stop date: 06/02/17 14:01:00 CDT Notes: (Same as: Romazicon) Start Date: 05/03/17 Stop Date: 05/04/17 Status: Discontinued ANES labetalol 10 mg, 2 mL, Route: IVP, Drug form: INJ, Q5Min, Dosing Weight 88.636, kg, PRN El evated BP, Start date: 05/03/17 14:02:00 CDT, Duration: 5 doses or times, Stop d ate: Limited # of times Start Date: 05/03/17 Stop Date: 05/04/17 Status: Discontinued ANES naloxone 0.4 mg, 1 mL, Route: IVP, Drug form: INJ, Q2MIN, Dosing Weight 88.636, kg, PRN N arcotic Reversal, Start date: 05/03/17 14:02:00 CDT, Duration: 8 doses or times, Stop date: Limited # of times Notes: Same as Narcan Start Date: 05/03/17 Stop Date: 05/04/17 Status: Discontinued ANES ondansetron 4 mg, 2 mL, Route: IVP, Drug form: INJ, ONCE, Dosing Weight 88.636, kg, PRN Naus ea & Vomiting, Start date: 05/03/17 14:02:00 CDT Notes: (Same as: Zofran) MEDICATION WASTE Product Size: 4 mgProduct Was chela: ___ mg Start Date: 05/03/17 Stop Date: 05/04/17 Status: Discontinued ANES oxyCODONE 10 mg, 2 tab, Route: PO, Drug form: TAB, Q4H, Dosing Weight 88.636, kg, PRN Pain Score 7-10, Start date: 05/03/17 14:02:00 CDT, Duration: 30 day, Stop date: 14:01:00 CDT Notes: (Same as: Roxicodone) Start Date: 05/03/17 Stop Date: 05/04/17 Status: Discontinued ANES oxyCODONE 5 mg, 1 tab, Route: PO, Drug form: TAB, Q4H, Dosing Weight 88.636, kg, PRN Pain Score 4-6, Start date: 05/03/17 14:02:00 CDT, Duration: 30 day, Stop date: 06/02 14:01:00 CDT Notes: (Same as: Roxicodone) Start Date: 05/03/17 Stop Date: 05/04/17 Status: Discontinued aspirin 0 Refill(s) Start Date: 05/03/17 Stop Date: 05/03/17 Status: Discontinued clindamycin 300 mg oral capsule 300 mg = 1 cap, PO, Q6H, X 10 day, # 40 cap, 0 Refill(s) Start Date: 05/03/17 Stop Date: 05/13/17 Status: Ordered docusate sodium 100 mg oral capsule 100 mg = 1 cap, PO, BID, # 60 cap, 0 Refill(s) Start Date: 05/03/17 Status: Ordered esmolol (ANES) Route: IV, Drug form: INJ, ONCE, Stop date: 05/03/17 15:07:00 CDT Start Date: 05/03/17 Stop Date: 05/03/17 Status: Completed fentaNYL (ANES) Route: IV, Drug form: INJ, ONCE, Stop date: 05/03/17 14:17:00 CDT Start Date: 05/03/17 Stop Date: 05/03/17 Status: Completed glycopyrrolate (ANES) Route: IV, Drug form: INJ, ONCE, Stop date: 05/03/17 14:52:00 CDT Start Date: 05/03/17 Stop Date: 05/03/17 Status: Completed Keflex 500 mg oral capsule 500 mg = 1 cap, PO, TID, X 10 day, # 30 cap, 0 Refill(s) Start Date: 05/03/17 Stop Date: 05/03/17 Status: Discontinued lidocaine (ANES) Route: IV, Drug form: INJ, ONCE, Stop date: 05/03/17 14:17:00 CDT Start Date: 05/03/17 Stop Date: 05/03/17 Status: Completed LR 1000 mL INJ (ANES) Route: IV, Total Volume: 1,000, Start date: 05/03/17 13:39:00 CDT, Stop date: 14:39:00 CDT Start Date: 05/03/17 Stop Date: 05/03/17 Status: Completed niCARdipine (ANES) Route: IV, Drug form: INJ, ONCE, Stop date: 05/03/17 15:07:00 CDT Start Date: 05/03/17 Stop Date: 05/03/17 Status: Completed ondansetron (ANES) Route: IV, Drug form: INJ, ONCE, Stop date: 05/03/17 15:07:00 CDT Start Date: 05/03/17 Stop Date: 05/03/17 Status: Completed primidone PO, TID, 0 Refill(s) Start Date: 05/03/17 Status: Ordered propofol (ANES) Route: IV, Drug form: INJ, ONCE, Stop date: 05/03/17 14:17:00 CDT Start Date: 05/03/17 Stop Date: 05/03/17 Status: Completed testosterone 0 Refill(s) Start Date: 05/03/17 Status: Ordered Tylenol with Codeine #3 oral tablet 1 - 2 tab, PO, Q6H, PRN Pain, X 4 day, # 32 tab, 0 Refill(s) Start Date: 05/03/17 Stop Date: 05/07/17 Status: Ordered vancomycin (ANES) (ANES) Route: IV, Drug form: INJ, Start date: 05/03/17 13:50:00 CDT, Stop date: 7 14:50:00 CDT Start Date: 05/03/17 Stop Date: 05/03/17 Status: Completed vancomycin + sodium chloride 0.9% 250 mL INJ (for IV set) 250 mL 1.25 gm, Route: IVPB, PRE OP, Start date: 05/02/17 23:00:00 CDT, Duration: 1 day , Stop date: 05/03/17 22:59:00 CDT, ABX Indication: Surgical Prophylaxis Notes: TIME CRITICAL MEDICATION(Same As: Vancocin)Infusion rate< 1000 mg: infuse over 1 [id number] - 1500 mg: infuse over 1.5 hoursVancomycin FOR IV SET [id number] - 2000 mg: infuse over 2 hours> 2001 mg: infuse over 2.5 hours MEDICATION WASTE Product Size: 1000 mgProduct Wasted: ___ mg Start Date: 05/02/17 Stop Date: 05/04/17 Status: Discontinued Results No data available for this section [...]
--- OUTSIDE RECORDS SUMMARY | 2020-03-25 11:26 | XMS REPORT | Summary of Care ---
Author Author [facility] Organization [facility] Address Unknown Phone Unavailable Encounter JOSE Rosenberg(KATYA) [id number] Date(s): 04/14/17 - 04/14/17 [facility] [address] [phone] Discharge Disposition: Home or Self Care Attending Physician: Albert Clark MD Referring Physician: Albert Clark MD Vital Signs 1 2 3 Most recent to oldest [Reference Range]: 148/69 mmHg *HI* (04/14/17 8:30 PM) 169/82 mmHg *HI* (04/14/17 7:45 PM) 176/89 mmHg *HI* (04/14/17 7:30 PM) Blood Pressure [90-140/60-90 mmHg] 21 BRMIN *HI* (04/14/17 8:30 PM) 12 BRMIN *LOW* (04/14/17 7:45 PM) 11 BRMIN *LOW* (04/14/17 7:30 PM) Respiratory Rate [14-20 BRMIN] 60 bpm (04/14/17 2:19 PM) Peripheral Pulse Rate [60-100 bpm] Problem List Condition Effective Dates Status Health Status Informan t Essential Active tremor(Confirmed) HLD Active (hyperlipidemia)(Con firmed) LOUISE (obstructive Active sleep apnea)(Confirmed) Allergies, Adverse Reactions, Alerts Substance Reaction Severity Status penicillins Active Medications No Known Medications Results CHEM PANEL Most recent to 1 oldest [Reference Range]: eGFR 89 mL/min/1.73m2 1 *NA* (04/14/17 4:56 PM) POC Creatinine 0.8 mg/dL [0.5-1.4 mg/dL] (04/14/17 4:56 PM) 1Result Comment: The eGFR is calculated [...] be mul tiplied by the estimated BMI. Immunizations No data available for this section [...]
--- OUTSIDE RECORDS SUMMARY | 2020-03-25 11:26 | XMS REPORT | Summary of Care ---
Author Author ROEL Neurosurgery [facility] Organization [facility] Neurosurgery [facility] Address Unknown Phone Unavailable Encounter JOSE Rosenberg(KATYA) [id number] Date(s): 05/10/18 - 05/10/18 [facility] Neurosurgery [facility] [address] [place], [place] [address] [phone] Discharge Disposition: Home or Self Care Attending Physician: Albert Clark MD Referring Physician: Delano Pickering MD Vital Signs Most recent to 1 oldest [Reference Range]: Height 180.34 cm (05/09/18 8:58 AM) Blood Pressure 156/82 mmHg [90-140/60-90 mmHg] *HI* (05/09/18 8:58 AM) Peripheral Pulse 81 bpm Rate [60-100 bpm] (05/09/18 8:58 AM) Weight 92.33 kg (05/09/18 8:58 AM) Body Mass Index 28.39 m2 (05/09/18 8:58 AM) Problem List Condition Effective Dates Status Health Status Informan t Essential Active tremor(Confirmed) HLD Active (hyperlipidemia)(Con firmed) LOUSIE (obstructive Active sleep apnea)(Confirmed) Allergies, Adverse Reactions, Alerts Substance Reaction Severity Status penicillins Active Medications montelukast 10 mg oral tablet 10 mg = 1 tab, PO, Bedtime, # 30 tab, 0 Refill(s) Start Date: 05/10/18 Status: Ordered olopatadine ophthalmic BOTH EYES, 0 Refill(s) Start Date: 05/10/18 Status: Ordered Results No data available for this section Immunizations No data available for this section Procedures Procedure Date Related Diagnosis Body Site Status Teeth operation1 Completed 1wisdom teeth removed Social History Social History Type Response Alcohol Current, Type Beer. Freque ncy: 1-2 times per week. Smoking Status Current every day smoker; T ype: Cigarettes; Exposure to Tobacco Smoke None; Cigarette Smoking Last 365 Days Yes; Re g Smoking Cessation Counseling No; Other Tobacco Frequency 8 daily; 1 entered on: 05/09/18 1pt is a current smoker of cigarettes. Smokes ~ 1/4 ppd x ~50yrs. He is interested in quitting smoking Assessment and Plan No data available for this section
--- NOTE | 2020-03-25 12:01 | NUR ---
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 Bedside report received from Osvaldo CHANDLER. Identifierx2. Alert oriented and appropriate, PERRLA, respirations even and unlabored to room air. Pulses x4 extremities equal and strong. Pedal pulses PT/DP X4 doppler and marked. Cap fill brisk < 3 sec. Rt TR radial band and rt pedal site intact with dry and intact. Skin warm and dry integrity appears D/I. IV 20g to LFA presents healthy w/o s/s of infiltration or complaint infusing at 100cchr. Abdomen soft and supple. pt offered toileting, denies need to urinate or defecate. No personal affects with patient. Family XXXXX. Pt and family verbalizes understanding of POC. Currently w/o complaint of pain or need. ok to decrease air at 1500p in tr band and dc home at 1600pm if stasis achieved.ds/rn
--- NOTE | 2020-03-25 15:00 | NUR ---
1500p RADIAL COMPRESSION REMOVAL NOTE: Initial Cuff volume 14 cc 1500p -4cc Removed No hematoma/bleeding noted with normal neurovascular function. 1515p -5cc Removed No hematoma/ bleeding noted with normal neurovascular function. 1530p -5cc Removed No hematoma/bleeding noted with normal neurovascular function. Air removal completed. Stasis achieved sterile 2x2,Tegaderm, Coban dressing No hematoma, bleeding noted with normal neurovascular function. Wrist splint in place. Pt instructed on POC. Ds/Rn
--- NOTE | 2020-03-25 16:00 | NUR ---
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 Rt tr band assessed and rt pedal access site,for s/s of complication and presence of hematoma. Skin warm, dry, no discolor, and pulses present. IV removed from left forearm, Distal tip appears intact. VS WNL. Pt denies pain, sob, or need at this time. Family at bedside. Review of discharge paperwork and follow up instructions. verbalized understanding. Pt to wheelchair and transported to front of hospital. Transferred to private vehicle under own strength w/o incident with DC paperwork in hand. -mikael/rn
--- NOTE | 2020-03-25 18:00 | Operative Report ---
DATE OF PROCEDURE: 03/25/2020 SURGEON: Jack Orosco MD INDICATION: Peripheral arterial disease, claudication of right lower extremity. PROCEDURES PERFORMED: 1. Ultrasound-guided access into the right radial and right posterior tibial artery with sheath placement. 2. Conscious sedation 65 minutes. 3. Abdominal aortogram. 4. Third order catheter placement unilateral extremity angiogram from the right radial artery to right superficial femoral artery. 5. Atherectomy and drug-coated balloon angioplasty of the right femoral artery. 6. Secondary thrombectomy of the right femoral artery. 7. Sheath closure device, sheath TR band placement of the right radial and right posterior tibial artery. COMPLICATIONS: None. BLOOD LOSS: Minimal. RECOMMENDATIONS: Dual antiplatelet therapy for life. DESCRIPTION OF PROCEDURE: Access obtained in the right radial artery using ultrasound guidance a 6-Moldovan sheath was placed. The access was obtained in the right posterior tibial artery using ultrasound guidance. A 6-Moldovan sheath was placed. The patient received heparin 10,000 for anticoagulation. Abdominal aortogram demonstrated ectatic and mild plaque in the abdominal aorta and iliac bilaterally. The sheath was advanced in the right radial artery. The right femoral artery proximal and the right femoral artery 90% stenosis. The right anterior tibial artery 100% stenosis. Right posterior tibial artery 50% stenosis. A decision was made to intervene on the right femoral artery. The lesions were crossed using in a retrograde fashion from the right posterior tibial arteries using the run-through wire. Directional atherectomy was performed using a HawkOne catheter with large amounts of visible thrombus with manual aspiration. Thrombectomy was needed to drug coated balloon 6 mm in diameter reviewed to post dilate the lesion. Excellent end result two vessel runoff. No complications. TR band applied to the right wrist and right foot. The patient discharged home same day. Jack Orosco MD KSB/MODL /[id number]
== END | disposition home or self-care (01) ==
LOC: CATH LAB 11:23
PROVIDERS: ATTEND Internal Medicine Interventional Cardiology
DX: I70.211 Atherosclerosis of native arteries of extremities with intermittent claudication, right leg (principal); Z88.0 Allergy status to penicillin; Z01.812 Encounter for preprocedural laboratory examination; Z11.59 Encounter for screening for other viral diseases; Z79.82 Long term (current) use of aspirin; Z82.49 Family history of ischemic heart disease and other diseases of the circulatory system
CPT/HCPCS: 36415; 37186; 37225; 75625; 76937; 80053; 85025; 87635; C1714; C1769; C1887 ×2; C2623; J2001; J2250; J3010; J7030; Q9967; 36247; 37220; 75710; 99152; 99153; J1644

== ENCOUNTER → 2021-06-04 | Day surgery (SDC) | payer MEDICARE ==
[2021-06-02 11:08] LABS: BASOPHILS # (AUTO) 0.1 (0.0-0.1); BASOPHILS % 1.2 % (0.0-1.0); EOSINOPHILS # (AUTO) 0.4 (0.0-0.4); HEMOGLOBIN 15.1 g/dL (14.0-18.0); LYMPHOCYTES # (AUTO) 2.4 (1.0-3.2); MEAN CORPUSCULAR HEMOGLOBIN 29.2 pg (28-32); MEAN CORPUSCULAR HGB CONC 32.8 g/dL (31-35); MONOCYTES # (AUTO) 0.9 (0.2-0.8); MONOCYTES % 9.6 % (4.4-11.3); NEUTROPHILS # (AUTO) 5.3 (2.1-6.9); NEUTROPHILS % 58.9 % (38.7-80.0); PLATELET COUNT 233 x10e3/uL (140-360); RED BLOOD COUNT 5.17 x10e6/uL (4.3-5.7)
[~2021-06-04] MED LIST changes: -ALPRAZOLAM 0.5 MG TAB ONE; -ASPIRIN 325 MG TAB ONE; +CETIRIZINE HCL10 M1; +CLOPIDOGREL75 MG PO; -DIPHENHYDRAMINE HCL 25 MG CAP ONE; -FENTANYL CITRATE/PF 100MCG/2 ML INJ ONE; +FLOMAX0.4 MG PO; -HEPARIN SOD (PORCINE) 1000 UNIT/ML 30ML ONE; -HEPARIN SOD/SOD CHLORIDE 2,000 ML ONE; -IOPAMIDOL 300MG/ML 100 ML INFUS..BTL IV ONE; -LIDOCAINE HCL 2% LOCAL 20 ML VIAL ONE; -MIDAZOLAM HCL 2 MG/2 ML VIAL ONE; +PATADAY2.5 ML OP/OT; -PRASUGREL 10 MG TAB ONE; +PROPOFOL IV EMULSION 10 MG/ML 20 ML VIAL ONE; -SODIUM CHLORIDE 0.9% 1000ML 1,000 ML ONE; -SODIUM CHLORIDE 0.9% 50ML 50 ML ONE; +[UNRECOGNIZED DRUG - OTHER]
[2021-06-04 10:10] VITALS: BP 151/85
== END | disposition home or self-care (01) ==
LOC: OR 06:57
PROVIDERS: ATTEND Internal Medicine Gastroenterology
DX: R19.5 Other fecal abnormalities (principal); K64.8 Other hemorrhoids; Z71.3 Dietary counseling and surveillance; G47.33 Obstructive sleep apnea (adult) (pediatric); E78.5 Hyperlipidemia, unspecified; N39.0 Urinary tract infection, site not specified; F17.210 Nicotine dependence, cigarettes, uncomplicated; E66.3 Overweight; Z88.0 Allergy status to penicillin; Z91.013 Allergy to seafood; J30.1 Allergic rhinitis due to pollen; Z01.810 Encounter for preprocedural cardiovascular examination; Z01.812 Encounter for preprocedural laboratory examination; Z79.82 Long term (current) use of aspirin; Z79.02 Long term (current) use of antithrombotics/antiplatelets; Z68.28 Body mass index [BMI] 28.0-28.9, adult
CPT/HCPCS: 36415; 45378; 85025; 93005; J2704

== ENCOUNTER 2024-08-27 07:21 | Observation (INO) | payer MEDICARE ==
[2024-08-24 15:15] LABS: BASOPHILS # (AUTO) 0.1 (0.0-0.1); BASOPHILS % 0.7 % (0.0-1.0); EOSINOPHILS # (AUTO) 0.2 (0.0-0.4); EOSINOPHILS % 1.7 % (0.0-6.0); HEMATOCRIT 52.8 % (38.2-49.6); LYMPHOCYTES # (AUTO) 2.2 (1.0-3.2); LYMPHOCYTES % 16.1 % (18.0-39.1); MEAN CORPUSCULAR HGB CONC 32.2 g/dL (31-35); MEAN CORPUSCULAR VOLUME 93.1 fL (81-99); MONOCYTES % 7.2 % (4.4-11.3); NEUTROPHILS # (AUTO) 10.2 (2.1-6.9); NEUTROPHILS % 73.9 % (38.7-80.0); PLATELET COUNT 231 x10e3/uL (140-360); RED BLOOD COUNT 5.67 x10e6/uL (4.3-5.7); RED CELL DISTRIBUTION WIDTH 14.5 % (11.7-14.4); WHITE BLOOD COUNT 13.83 x10e3/uL (4.8-10.8)
[~2024-08-27 07:21] MED LIST changes: +AMLODIPINE BESYL5 MG PO; +FISH OIL 1,0001 EAC7; +KENALOG-4040 MG/1 ML INJ; +METHYLPREDNISOLO4 M1 PO; -PROPOFOL IV EMULSION 10 MG/ML 20 ML VIAL ONE; +PROTONIX20 MG PO; +TESTOSTERONE5 GM; +VIGAMOX3 ML OU
[2024-08-27] MEDS ORDERED: ROPIVACAINE/EPI/CLONIDINE/KET 50 ML SYRINGE INJ ONE (07:30)
[2024-08-27] MEDS: GABAPENTIN 300 MG CAP ONE (07:47)
[2024-08-27] MEDS: LACTATED RINGER'S 1,000 ML ONE (07:47)
[2024-08-27] MEDS: DEXAMETHASONE SOD PHOS 10 MG/1 ML VIAL ONE (07:47)
[2024-08-27] MEDS: CEFAZOLIN SODIUM 2 GM ONE (07:48)
[2024-08-27] MEDS: CELECOXIB 200 MG CAP ONE (07:48)
[2024-08-27] MEDS ORDERED: VITAMIN B121000 MCG PO (08:01)
[2024-08-27] MEDS ORDERED: Vancomycin IV 500 MG ONE (10:11)
[2024-08-27] MEDS ORDERED: SODIUM CHLORIDE 0.9% 500ML 500 ML ONE (10:11)
[2024-08-27] MEDS ORDERED: TRANEXAMIC ACID 10 ML ONE (10:11)
[2024-08-27] MEDS ORDERED: TRANEXAMIC ACID 1,000 MG/10 ML ML IV ONE (10:14)
[2024-08-27] MEDS ORDERED: DOCUSATE SODIUM 100 MG CAP PO PRN (12:00)
[2024-08-27] MEDS ORDERED: ONDANSETRON HCL INJ 2MG/ML 2ML 2 MG/ML VIAL IV PRN (12:00)
[2024-08-27] MEDS ORDERED: DIPHENHYDRAMINE HCL INJ 50 MG/ML VIAL IV PRN (12:00)
[2024-08-27] MEDS ORDERED: DEXAMETHASONE SOD PHOS 10 MG/1 ML VIAL ONE (12:12)
[2024-08-27] MEDS ORDERED: EPINEPHRINE HCL 1:1000 1ML 1 MG/ML AMP ONE (12:12)
[2024-08-27] MEDS ORDERED: ROPIVACAINE 0.5% 5 MG/ML 30 ML SDV ONE (12:12)
[2024-08-27] MEDS ORDERED: LIDOCAINE HCL 2% LOCAL INJ 5 ML SDV VIAL INJ ONE (12:45)
[2024-08-27] MEDS ORDERED: PROPOFOL IV EMULSION 10 MG/ML 20 ML VIAL ONE (12:45)
[2024-08-27] MEDS ORDERED: ONDANSETRON HCL INJ 2MG/ML 2ML 2 MG/ML VIAL ONE (12:45)
[2024-08-27] MEDS ORDERED: GLYCOPYRROLATE INJ 0.2 MG/ML VIAL ONE (12:45)
[2024-08-27] MEDS ORDERED: ROCURONIUM BROMIDE 10 MG/ML 5ML VIAL IV ONE (12:45)
[2024-08-27] MEDS ORDERED: SEVOFLURANE INHAL SOLN 250 ML PEN BTL ONE (12:45)
[2024-08-27] MEDS ORDERED: LABETALOL HCL 5 MG/ML 20ML VIAL ONE (12:45)
[2024-08-27] MEDS ORDERED: NEOSTIGMINE 1 MG/ML 10ML VIAL ONE (12:45)
[2024-08-27] MEDS ORDERED: DEXAMETHASONE SOD PHOS INJ 4 MG/ML SDV ONE (12:45)
[2024-08-27] MEDS ORDERED: FENTANYL CITRATE/PF 100MCG/2 ML INJ ONE (12:50)
[2024-08-27] MEDS ORDERED: FLUMAZENIL 0.5MG/ 5ML VIAL ONE (12:50)
[2024-08-27] MEDS ORDERED: MIDAZOLAM HCL 2 MG/2 ML VIAL ONE (12:50)
[2024-08-27] MEDS: ROPIVACAINE 246.25 MG, EPINEPHRINE HCL 1:1000 1ML 0.5 MG, CLONIDINE HCL 0.08 MG, KETORO... INJ ONE (13:30)
[2024-08-27] MEDS: SODIUM CHLORIDE 0.9% 1000ML 1,000 ML IV SCH (14:12)
[2024-08-27 14:40] VITALS: PULSE 77; RESP 18; O2SAT 96
[2024-08-27] MEDS: ACETAMINOPHEN 1000 MG/100 ML IV PRN (15:17)
[2024-08-27 15:42] VITALS: BP 156/77; PULSE 77; RESP 18; TEMP 97.4; O2SAT 96
[2024-08-27 16:01] VITALS: BP 155/70; PULSE 60; RESP 16; TEMP 98; O2SAT 94
[2024-08-27 16:09] LABS: BASOPHILS # (AUTO) 0.1 (0.0-0.1); BASOPHILS % 0.3 % (0.0-1.0); EOSINOPHILS % 0.1 % (0.0-6.0); HEMATOCRIT 52.7 % (38.2-49.6); HEMOGLOBIN 16.6 g/dL (14.0-18.0); LYMPHOCYTES # (AUTO) 0.8 (1.0-3.2); LYMPHOCYTES % 4.3 % (18.0-39.1); MEAN CORPUSCULAR HEMOGLOBIN 29.9 pg (28-32); MEAN CORPUSCULAR HGB CONC 31.5 g/dL (31-35); MONOCYTES # (AUTO) 0.3 (0.2-0.8); MONOCYTES % 1.6 % (4.4-11.3); NEUTROPHILS # (AUTO) 16.7 (2.1-6.9); PLATELET COUNT 202 x10e3/uL (140-360); RED BLOOD COUNT 5.55 x10e6/uL (4.3-5.7); RED CELL DISTRIBUTION WIDTH 14.5 % (11.7-14.4); WHITE BLOOD COUNT 17.93 x10e3/uL (4.8-10.8)
[2024-08-27] MEDS: CELECOXIB 200 MG CAP PO SCH (16:58)
[2024-08-27] MEDS: ASPIRIN 325 MG TAB PO SCH (16:58)
[2024-08-27 19:41] VITALS: PULSE 65; RESP 18; O2SAT 95
[2024-08-27 20:00] VITALS: BP 138/58; PULSE 62; RESP 18; TEMP 97.7; O2SAT 93
[2024-08-28 00:57] VITALS: BP 147/77; PULSE 60; RESP 18; TEMP 97.9; O2SAT 94
[2024-08-28 04:00] VITALS: BP 137/77; PULSE 87; RESP 18; TEMP 98.1; O2SAT 97
[2024-08-28] MEDS: DICYCLOMINE HCL 20 MG TAB PO ONE (05:39)
[2024-08-28 05:50] LABS: HEMATOCRIT 51.4 % (38.2-49.6); HEMOGLOBIN 16.6 g/dL (14.0-18.0)
[2024-08-28 07:40] VITALS: PULSE 74; RESP 20; O2SAT 94
[2024-08-28] MEDS: HYDROCODONE/APAP 7.5MG-325MG 1 EA TAB PO PRN (07:59)
[2024-08-28] MEDS: TAMSULOSIN HCL 0.4 MG CAP PO SCH (07:59)
[2024-08-28] MEDS: PANTOPRAZOLE SOD 40 MG TABEC PO SCH (07:59)
[2024-08-28] MEDS: MULTIVITAMINS/MINERALS TAB PO SCH (07:59)
[2024-08-28 08:00] VITALS: BP 135/74; PULSE 65; RESP 21; TEMP 98.4; O2SAT 97
[2024-08-28 09:36] VITALS: BP 135/74; PULSE 65; RESP 21; TEMP 98.4; O2SAT 97
[2024-08-28 12:00] VITALS: BP 157/72; PULSE 78; RESP 21; TEMP 98.8; O2SAT 97
[2024-08-28] MEDS: HYDROCODONE/APAP 5MG-325MG TAB PO PRN (12:44)
[2024-08-28] MEDS ORDERED: AMLODIPINE BESYLATE 5 MG TAB PO SCH (21:00)
[2024-08-28] MEDS ORDERED: ATORVASTATIN 20 MG TAB PO SCH (21:00)
== END 2024-08-28 14:07 | disposition home health service (06) ==
LOC: OR 07:21 → PACU V 13:02 → MED/SURG2 13:23
PROVIDERS: ADMIT Specialist; ATTEND Specialist
DX: M17.12 Unilateral primary osteoarthritis, left knee (principal); I10 Essential (primary) hypertension; E78.5 Hyperlipidemia, unspecified; K21.9 Gastro-esophageal reflux disease without esophagitis; N40.0 Benign prostatic hyperplasia without lower urinary tract symptoms; G25.0 Essential tremor; Z96.82 Presence of neurostimulator; Z01.812 Encounter for preprocedural laboratory examination; R94.31 Abnormal electrocardiogram [ECG] [EKG]; Z87.891 Personal history of nicotine dependence; Z79.899 Other long term (current) drug therapy; Z79.02 Long term (current) use of antithrombotics/antiplatelets; Z88.0 Allergy status to penicillin; Z91.013 Allergy to seafood
CPT/HCPCS: 27447; 36415 ×3; 71046; 73560; 85014; 85018; 85025 ×2; 86850; 86900; 93005; 94799 ×2; 97116 ×2; 97161; 97530; C1713 ×2; C1776 ×3; G0378 ×2; J0131; J0171; J0690 ×3; J1100 ×2; J1885; J2003; J2250; J2405; J2704; J2710; J2795; J3010; J3370; J3490; J7030 ×2; J7040; J7121; S0164

== ENCOUNTER → 2024-09-13 | Outpatient (REF) | payer MEDICARE ==
[~2024-09-13] MED LIST changes: +VITAMIN B121000 MCG PO
== END ==
LOC: RAD 13:01
PROVIDERS: ATTEND Specialist
DX: Z47.1 Aftercare following joint replacement surgery (principal); Z96.652 Presence of left artificial knee joint
CPT/HCPCS: 93971